=== PATIENT | male | born 1980 | race Caucasian/White ===

== ENCOUNTER 2016-12-13 11:00 | Emergency (ER) | payer OTHER ==
[~2016-12-13] VITALS: Ht 175.3 cm; Wt 63.6 kg
[~2016-12-13 11:00] MED LIST: FAMO40TA52 PO; MAG355OR14 PO; PHEN200C PO; QUET200T PO; RISP3TAB25 PO
[2016-12-13 11:03] VITALS: Ht 175.3 cm; Wt 63.6 kg
[2016-12-13] MEDS ORDERED: SOD CHLORIDE 0.9% 1,000 ML IV STA (11:26)
[2016-12-13] MEDS ORDERED: ONDANSETRON 4 MG INJ IV STA (11:26)
--- NOTE | 2016-12-13 11:28 | ERD ---
ER Documentation Chief Complaint Date/Time DATE: 12/13/16 TIME: : Chief Complaint BROUGHT IN VIA EMS DUE TO HALLUCINATION AND STATED APPENDICITIS HPI 36-year-old undomiciled male, history of bipolar disease, schizophrenia chronic alcohol and polysubstance abuse brought to the ED by rescue ambulance for evaluation. The patient states he has not had his medications and over 10 days and is hallucinating. Denies suicidal or homicidal ideations. These are the same symptoms he always gets when he does not take his medications. Denies chest pain or palpitations. No headache or neck pain. Not tremulous. Mild, generalized, nonradiating abdominal pain. Patient states he was diagnosed with appendicitis at another hospital. No nausea, vomiting, diarrhea or constipation. No URI symptoms, cough or shortness of breath. No dysuria, polyuria or flank pain. No fevers or chills. ROS All systems reviewed and are negative except as per history of present illness. Medications Home Meds Reported Medications Quetiapine Fumarate* (Quetiapine Fumarate*) 200 Mg Tablet, 200 MG PO HS, TAB PER PT HASN'T HAD RX IN 10 DAYS 12/13/16 Risperidone* (Risperdal*) 3 Mg Tablet, 3 MG PO DAILY, TAB 09/26/16 Phenytoin* Sodium Extended (Dilantin*) 200 Mg Capsule, 200 MG PO HS, CAP PER PT HASN'T HAD RX'S FOR 10 DAYS 09/26/16 Discontinued Reported Medications Quetiapine Fumarate* (Seroquel*) 200 Mg Tablet, 200 MG PO HS, #30 TAB 09/26/16 Discontinued Scripts Famotidine* (Famotidine*) 40 Mg Tablet, 40 MG PO DAILY, #30 TAB Prov:JEISON MONSALVE MD 09/26/16 Mag Hydrox/Al Hydrox/Simeth (Maalox Advanced Suspension) 355 Ml Oral.susp, 2 TSP PO TID for PAIN, #24 OZ Prov:JEISON MONSALVE MD 09/26/16 Allergies Allergies: Coded Allergies: No Known Allergy (Unverified , 12/13/16) PMhx/Soc Reviewed in chart. As per HPI. History of Surgery: No Anesthesia Reaction: No Hx Neurological Disorder: Yes (seizure) Hx Respiratory Disorders: No Hx Cardiac Disorders: No Hx Psychiatric Problems: Yes (bipolar, schizophrenia, ETOH abuse) Hx Miscellaneous Medical Probl: Yes (homeless) Hx Alcohol Use: Yes (4 pints of vodka last used today) Hx Substance Use: No Hx Tobacco Use: Yes FmHx No cancer or stroke Physical Exam Vitals Vital Signs Date Time Temp Pulse Resp B/P Pulse Ox O2 Delivery O2 Flow Rate FiO2 12/13/16 13:35 98.2 83 18 112/59 96 Room Air 12/13/16 11:03 98.8 100 18 138/92 98 Physical Exam Const: [] Head: Atraumatic Eyes: Normal Conjunctiva ENT: Normal External Ears, Nose and Mouth. Neck: Full range of motion..~ No meningismus. Resp: Clear to auscultation bilaterally Cardio: Regular rate and rhythm, no murmurs Abd: Soft, non tender, non distended. Normal bowel sounds Skin: No petechiae or rashes Back: No midline or flank tenderness Ext: No cyanosis, or edema Neur: Awake and alert Psych: Normal Mood and Affect Result Diagram: 12/13/16 1145 12/13/16 1145 Results 24 hrs Laboratory Tests Test 12/13/16 11:45 Alanine Aminotransferase (ALT/SGPT) 52IU/L Albumin 4.3g/dl Albumin/Globulin Ratio 1.34 Alkaline Phosphatase 85IU/L Anion Gap 19 Anisocytosis 2+ Aspartate Amino Transf (AST/SGOT) 113IU/L Band Neutrophils % 1.0% Basophils # 0.110^3/ul Basophils % 3.0% Blood Morphology Comment Blood Urea Nitrogen 7mg/dl Calcium Level 9.0mg/dl Carbon Dioxide Level 27mmol/L Chloride Level 107mmol/L Creatinine 0.54mg/dl Direct Bilirubin 0.00mg/dl Eosinophils # 0.210^3/ul Eosinophils % 5.0% Ethyl Alcohol Level mg/dl Globulin 3.20g/dl Glucose Level 91mg/dl Hematocrit 27.0% Hemoglobin 9.0g/dl Hypochromasia 2+ Indirect Bilirubin 0.3mg/dl Lipase 166U/L Lymphocytes # 1.110^3/ul Lymphocytes % 32.0% Mean Corpuscular Hemoglobin 25.0pg Mean Corpuscular Hemoglobin Concent 33.3g/dl Mean Corpuscular Volume 75.0fl Mean Platelet Volume 7.1fl Microcytosis 2+ Monocytes # 0.410^3/ul Monocytes % 12.0% Neutrophils # 1.610^3/ul Neutrophils % 47.0% Nucleated Red Blood Cells # 10^3/ul Nucleated Red Blood Cells % /100WBC Ovalocytes FEW Platelet Count 58510^3/UL Polychromasia 1+ Potassium Level 4.2mmol/L Red Blood Count 3.5910^6/ul Red Cell Distribution Width 19.7% Sodium Level 149mmol/L Total Bilirubin 0.3mg/dl Total Protein 7.5g/dl Urine Amphetamines Screen NEGATIVE Urine Barbiturates NEGATIVE Urine Benzodiazepines Screen NEGATIVE Urine Bilirubin NEGATIVE Urine Cannabinoids NEGATIVE Urine Clarity CLEAR Urine Cocaine Screen NEGATIVE Urine Color LT. YELLOW Urine Glucose NEGATIVE% Urine Hemoglobin NEGATIVE Urine Ketones NEGATIVE Urine Leukocyte Esterase NEGATIVE Urine Nitrite NEGATIVE Urine Opiates Screen NEGATIVE Urine Specific [place] <=1.005 Urine Total Protein NEGATIVE Urine Urobilinogen 0.2 E.U./dL Urine pH 5.0 White Blood Count 3.410^3/ul Current Medications Medications (Trade) Dose Ordered Sig/Andrzej Route PRN Reason Start Time Stop Time Status Last Admin Dose Admin Sodium Chloride (NS) 1,000 ml @ 1,000 mls/hr Q1H STAT IV 12/13/16 11:26 12/13/16 12:25 DC 12/13/16 11:49 Ondansetron HCl (Zofran Inj) 4 mg ONCE STAT IV 12/13/16 11:26 12/13/16 11:28 DC 12/13/16 11:49 Pantoprazole (Protonix Iv) 40 mg ONCE ONCE IV 12/13/16 11:30 12/13/16 11:31 DC 12/13/16 11:49 IV Flush 10 ml 10 ml STK-MED ONCE .ROUTE 12/13/16 11:46 12/13/16 11:47 DC 12/13/16 11:46 Sodium Chloride (NS) 100 ml @ ud STK-MED ONCE .ROUTE 12/13/16 11:46 12/13/16 11:47 DC 12/13/16 11:46 Iohexol (Omnipaque 300mg/ ml) 150 ml STK-MED ONCE .ROUTE 12/13/16 11:46 12/13/16 11:47 DC 12/13/16 11:46 PROCEDURE: CT Abdomen and Pelvis with Contrast CLINICAL INDICATION: Abdominal pain, left lower quadrant pain, EtOH TECHNIQUE: Transaxial images were obtained through the abdomen and pelvis on a multi-slice scanner following the intravenous administration of iodinated contrast. No oral contrast had previously been given. Sagittal and coronal re- formations were subsequently reconstructed. One or more of the following dose reduction techniques were used: - Automated exposure control. - Adjustment of the mA and/or kV according to patient size. - Use of iterative reconstruction technique. Radiation dose: CTDIvol = 7.25 mGy; DLP = 431.63 mGy-cm. COMPARISON: No prior studies are available for comparison. FINDINGS: Lung bases: Minimal discoid atelectasis is seen in the right posterior sulcus. Liver: The liver is borderline enlarged and diffusely fatty infiltrated with no focal lesion. The hepatic and portal veins are patent. Gallbladder: The gallbladder is somewhat contracted and no stone is identified. The bladder wall appears thickened. Bile ducts: The intra and extrahepatic bile ducts are normal in caliber. Pancreas: Appears normal with no mass or inflammation evident. Spleen: Normal in size with no focal lesion. Adrenals: Normal with no mass identified. Kidneys, ureters and bladder: A 3 mm hypodensity suspicious for a cyst is seen in the superior pole right kidney. The kidneys are otherwise unremarkable without hydronephrosis. The ureters appear unremarkable. The bladder is quite distended with urine but appears normal. Reproductive organs: The prostate is not enlarged. Stomach, bowel, and mesentery: Substantial stool seen within the colon. The small bowel gas pattern reflects an ileus. The stomach is unremarkable. Appendix: A normal retrocecal vermiform appendix is evident. Peritoneum: No free intraperitoneal fluid or air is identified. Aorta: Normal in caliber with no aneurysmal dilatation. IVC: Unremarkable. Lymph nodes: No pathologically enlarged nodes are identified. Osseous structures: Non-acute appearing fractures are seen new involve the left L2 and L3 transverse processes. IMPRESSION: 1. The liver is borderline enlarged and diffusely fatty infiltrated with no focal lesion. 2. No gallstones are identified. The gallbladder is contracted with the wall appearing somewhat thickened. No bile duct dilatation or pancreatic pathology is evident. 3. A 3 mm hypodensity suspicious for a cyst is seen at the superior pole right kidney. The kidneys, ureters and bladder are otherwise unremarkable. 4. Substantial stool is seen within the colon and the small bowel gas pattern reflects an ileus. There is no evidence of bowel obstruction or inflammation and a normal-appearing retrocecal vermiform appendix is evident. 5. There is no free intraperitoneal fluid or air. 6. Non acute fractures involving the left L2 and L3 transverse processes. 7. Minimal discoid atelectasis seen in the right posterior sulcus. Physician Farhan Date Time Electronically viewed and signed by Physician Farhan on 12/13/2016 13:44 RH/ Procedures/MDM DOCUMENTS REVIEWED: ED nurse, prior ED, prior records. REEXAMINATION/REEVALUATION: Time: 14:35. Doing well. Abdomen soft nontender. MEDICAL DECISION MAKIN-year-old undomiciled male, history of bipolar disease, schizophrenia chronic alcohol and polysubstance abuse brought to the ED by rescue ambulance for evaluation of hallucinations. Patient says he has not had his medications in over 10 days. Denies suicidality or homicidality. Complained of abdominal pain and stated he was diagnosed with appendicitis at another hospital but CT is negative. No signs of delirium tremens. Patient given 10 day supply of his medications including Dilantin, Seroquel and risperidone pending follow-up. clinical services specialist consult pending for placement. Patient is able to navigate the community and is stable for discharge with precautionary instructions and outpatient follow-up as counseled per Counseled patient regarding diagnostic workup, diagnosis and need for followup. Understands to return to ED if symptoms recur, worsen or any other concerns. Departure Diagnosis: Primary Impression: Hallucinations Additional Impressions: Bipolar disease, chronic Schizophrenia Schizophrenia type: unspecified Qualified Code: F20.9 - Schizophrenia, unspecified type Homelessness Noncompliance with medication regimen Condition: Stable Patient Instructions: Psychosis, Schizophrenia, General, Treating Schizophrenia , Understanding Bipolar Disorder CLIFTON YARBROUGH MD Dec 13, 2016 11:28
[2016-12-13] MEDS ORDERED: PANTOPRAZOLE 40 MG INJ IV ONE (11:30)
[2016-12-13] MEDS ORDERED: IOHEXOL 300MG/ML 150 ML BTL ONE (11:46)
[2016-12-13] MEDS ORDERED: SOD CHLORIDE 0.9% 100 ML ONE (11:46)
[2016-12-13 12:11] LABS: ADD UMIC NO; URINE BILIRUBIN (Dip) NEGATIVE (NEGATIVE); URINE BLOOD (Dip) NEGATIVE (NEGATIVE); URINE COLOR LT. YELLOW (YELLOW); URINE GLUCOSE (Dip) NEGATIVE (NEGATIVE); URINE KETONES (Dip) NEGATIVE (NEGATIVE); URINE LEUKOCYTE ESTERASE (Dip) NEGATIVE (NEGATIVE); URINE NITRITE (Dip) NEGATIVE (NEGATIVE); URINE TOTAL PROTEIN (Dip) NEGATIVE (NEGATIVE); URINE UROBILINOGEN (Dip) 0.2 E.U./dL (0.1-1.0)
[2016-12-13 12:13] LABS: ALBUMIN 4.3 g/dl (3.3-4.9)
[2016-12-13 12:14] LABS: POTASSIUM 4.2 mmol/L (3.5-5.1)
[2016-12-13 12:16] LABS: ALBUMIN/GLOBULIN RATIO 1.34; BILIRUBIN,INDIRECT 0.3 mg/dl (0-1.1); BILIRUBIN,TOTAL 0.3 mg/dl (0.2-1.3); CREATININE 0.54 mg/dl (0.61-1.24); MEAN CORPUSCULAR HGB CONC 33.3 g/dl (32.0-37.0); MEAN PLATELET VOLUME 7.1 fl (7.4-10.4); PLATELET COUNT 147 10^3/UL (140-440); RED BLOOD COUNT 3.59 10^6/ul (4.70-6.10); RED CELL DISTRIBUTION WIDTH 19.7 % (11.5-14.5); TOTAL PROTEIN 7.5 g/dl (6.1-8.1); UNCORRECTED WBC 3.4 10^3/ul (4.8-10.8); WHITE BLOOD COUNT 3.4 10^3/ul (4.8-10.8)
[2016-12-13] MEDS ORDERED: QUET200T27 PO (12:17)
[2016-12-13 12:19] LABS: CONDITION 1; LH ANALYZER COMMENTS 1; SUSPECT 1
[2016-12-13 12:31] LABS: BASOPHIL # 0.1 10^3/ul (0.0-0.1); EOSINOPHILS # 0.2 10^3/ul (0.0-0.5); LYMPHOCYTES # 1.1 10^3/ul (0.8-2.9); MONOCYTE # 0.4 10^3/ul (0.3-0.9); NEUTROPHIL # 1.6 10^3/ul (1.6-7.5)
[2016-12-13 12:32] LABS: ANISOCYTOSIS 2+; HYPOCHROMASIA 2+; MICROCYTOSIS 2+; OVALOCYTES FEW; POIKILOCYTOSIS 1+
[2016-12-13 12:33] LABS: POLYCHROMASIA 1+
[2016-12-13 12:53] LABS: BARBITURATES NEGATIVE (NEGATIVE); BENZODIAZEPINES NEGATIVE (NEGATIVE); CANNABINOIDS NEGATIVE (NEGATIVE); COCAINE NEGATIVE (NEGATIVE); OPIATES NEGATIVE (NEGATIVE)
[2016-12-13 13:35] VITALS: BP 112/59; PULSE 83; RESP 18; TEMP 98.2
--- NOTE | 2016-12-13 13:44 | RADRPT ---
PROCEDURE: CT Abdomen and Pelvis with Contrast CLINICAL INDICATION: Abdominal pain, left lower quadrant pain, EtOH TECHNIQUE: Transaxial images were obtained through the abdomen and pelvis on a multi-slice scanner following the intravenous administration of iodinated contrast. No oral contrast had previously be en given. Sagittal and coronal re-formations were subsequently reconstructed. One or more of the following dose reduction techniques were used: - Automated exposure control. - Adjustment of the mA and/or kV according to patient size. - Use of iterative reconstruction technique. Radiation dose: CTDIvol = 7.25 mGy; DLP = 431.63 mGy-cm. COMPARISON: No prior studies are available for comparison. FINDINGS: Lung bases: Minimal discoid atelectasis is seen in the right posterior sulcus. Liver: The liver is borderline enlarged and diffusely fatty infiltrated with no focal lesion. The h epatic and portal veins are patent. Gallbladder: The gallbladder is somewhat contracted and no stone is identified. The bladder wall ap pears thickened. Bile ducts: The intra and extrahepatic bile ducts are normal in caliber. Pancreas: Appears normal with no mass or inflammation evident. Spleen: Normal in size with no focal lesion. Adrenals: Normal with no mass identified. Kidneys, ureters and bladder: A 3 mm hypodensity suspicious for a cyst is seen in the superior pole right kidney. The kidneys are otherwise unremarkable without hydronephrosis. The ureters appear un remarkable. The bladder is quite distended with urine but appears normal. Reproductive organs: The prostate is not enlarged. Stomach, bowel, and mesentery: Substantial stool seen within the colon. The small bowel gas pattern reflects an ileus. The stomach is unremarkable. Appendix: A normal retrocecal vermiform appendix is evident. Peritoneum: No free intraperitoneal fluid or air is identified. Aorta: Normal in caliber with no aneurysmal dilatation. IVC: Unremarkable. Lymph nodes: No pathologically enlarged nodes are identified. Osseous structures: Non-acute appearing fractures are seen new involve the left L2 and L3 transverse processes. IMPRESSION: 1. The liver is borderline enlarged and diffusely fatty infiltrated with no focal lesion. 2. No gallstones are identified. The gallbladder is contracted with the wall appearing somewhat th ickened. No bile duct dilatation or pancreatic pathology is evident. 3. A 3 mm hypodensity suspicious for a cyst is seen at the superior pole right kidney. The kidneys , ureters and bladder are otherwise unremarkable. 4. Substantial stool is seen within the colon and the small bowel gas pattern reflects an ileus. T here is no evidence of bowel obstruction or inflammation and a normal-appearing retrocecal vermiform appendix is evident. 5. There is no free intraperitoneal fluid or air. 6. Non acute fractures involving the left L2 and L3 transverse processes. 7. Minimal discoid atelectasis seen in the right posterior sulcus. Lauren Silva Physician Date Time Electronically viewed and signed by Lauren Silva Physician on 12/13/2016 13:44 RH/
[2016-12-13] MEDS ORDERED: QUET200T PO (14:47)
[2016-12-13] MEDS ORDERED: RISP3TAB25 PO (14:47)
[2016-12-13] MEDS ORDERED: PHEN300C2 PO (14:47)
[2016-12-14] MEDS ORDERED: ONDA4TAB14 PO (03:27)
[2016-12-14] MEDS ORDERED: DIPH1TAB PO (03:27)
[2016-12-14] MEDS ORDERED: HYDR-906 PO (03:27)
[2016-12-14] MEDS ORDERED: ELIM TOP (20:00)
== END 2016-12-13 15:10 | disposition home or self-care (01) ==
LOC: E/R 11:00
DX: R44.3 Hallucinations, unspecified (principal); F31.9 Bipolar disorder, unspecified; Z87.891 Personal history of nicotine dependence; Z91.14 Patient's other noncompliance with medication regimen; Z59.0 Homelessness
CPT/HCPCS: 36415; 74177; 80053; 80306; 80307; 81003; 83690; 85025; 96374; 96375; C9113; J2405; J7030; Q9967; Z7502; Z7610

== ENCOUNTER 2016-12-13 20:02 | Emergency (ER) | payer OTHER ==
[~2016-12-13] VITALS: Ht 175.3 cm; Wt 63.6 kg
[~2016-12-13 20:02] MED LIST changes: +PHEN300C2 PO; +QUET200T27 PO
[2016-12-13 20:05] VITALS: Ht 175.3 cm; Wt 63.6 kg
[2016-12-14] MEDS ORDERED: FAMOTIDINE 20 MG INJ IV STA (00:57)
[2016-12-14] MEDS ORDERED: ONDANSETRON 4 MG INJ IV STA (00:57)
[2016-12-14] MEDS ORDERED: SOD CHLORIDE 0.9% 1,000 ML IV STA (00:57)
[2016-12-14] MEDS ORDERED: morphine 4 MG/ML VIAL IV STA (00:57)
[2016-12-14] MEDS ORDERED: IOHEXOL 300MG/ML 150 ML BTL ONE (01:17)
[2016-12-14] MEDS ORDERED: SOD CHLORIDE 0.9% 100 ML ONE (01:17)
[2016-12-14 01:29] LABS: HEMATOCRIT 29.5 % (42.0-52.0); HEMOGLOBIN 9.7 g/dl (14.0-18.0); MEAN CORPUSCULAR HEMOGLOBIN 24.8 pg (29.0-33.0); MEAN CORPUSCULAR HGB CONC 32.9 g/dl (32.0-37.0); MEAN CORPUSCULAR VOLUME 75.3 fl (82.0-101.0); MEAN PLATELET VOLUME 7.1 fl (7.4-10.4); PLATELET COUNT 154 10^3/UL (140-440); RED BLOOD COUNT 3.92 10^6/ul (4.70-6.10); RED CELL DISTRIBUTION WIDTH 19.1 % (11.5-14.5); UNCORRECTED WBC 2.3 10^3/ul (4.8-10.8); WHITE BLOOD COUNT 2.3 10^3/ul (4.8-10.8)
[2016-12-14 01:33] LABS: CONDITION 1; LH ANALYZER COMMENTS 1; SUSPECT 1
[2016-12-14 01:39] LABS: ALBUMIN 4.7 g/dl (3.3-4.9)
[2016-12-14 01:40] LABS: POTASSIUM 3.9 mmol/L (3.5-5.1)
[2016-12-14 01:42] LABS: BILIRUBIN,INDIRECT 0.1 mg/dl (0-1.1); BILIRUBIN,TOTAL 0.1 mg/dl (0.2-1.3); CREATININE 0.61 mg/dl (0.61-1.24)
[2016-12-14 01:43] LABS: ALBUMIN/GLOBULIN RATIO 1.42
[2016-12-14 02:05] LABS: EOSINOPHILS # 0.2 10^3/ul (0.0-0.5); LYMPHOCYTES # 1.1 10^3/ul (0.8-2.9); MONOCYTE # 0.2 10^3/ul (0.3-0.9); NEUTROPHIL # 0.7 10^3/ul (1.6-7.5)
[2016-12-14 02:07] LABS: PLATELET ESTIMATE PLT APPEAR ADEQUATE
--- NOTE | 2016-12-14 02:53 | ERA ---
ER Documentation Chief Complaint Date/Time DATE: 12/14/16 TIME: 02:49 Chief Complaint BIBA x belly pain,drunk,&vomiting on/off HPI This 36-year-old male complaining of diffuse abdominal pain with off and on vomiting. He is also says he has had off-and-on diarrhea for the past 2 days both nonbloody no bile in the vomit. Patient says he drank vodka and 3x24 ounce beers. No chest pain shortness of breath no fever no history of dyspepsia or peptic ulcer disease. Describes the pain is diffuse and dull and constant nothing seems to make it worse or better no radiation no dysuria no hematuria ROS All systems reviewed and are negative except as per history of present illness. Medications Home Meds Active Scripts Risperidone* (Risperdal*) 3 Mg Tablet, 3 MG PO DAILY for 10 Days, TAB Prov:CLIFTON YARBROUGH MD 12/13/16 Phenytoin* Sodium Extended (Dilantin*) 300 Mg Capsule, 300 MG PO HS for 10 Days , CAP Prov:CLIFTON YARBROUGH MD 12/13/16 Quetiapine Fumarate* (Seroquel*) 200 Mg Tablet, 200 MG PO HS, #10 TAB Prov:CLIFTON YARBROUGH MD 12/13/16 Reported Medications Quetiapine Fumarate* (Quetiapine Fumarate*) 200 Mg Tablet, 200 MG PO HS, TAB PER PT HASN'T HAD RX IN 10 DAYS 12/13/16 Risperidone* (Risperdal*) 3 Mg Tablet, 3 MG PO DAILY, TAB 09/26/16 Phenytoin* Sodium Extended (Dilantin*) 200 Mg Capsule, 200 MG PO HS, CAP PER PT HASN'T HAD RX'S FOR 10 DAYS 09/26/16 Discontinued Reported Medications Quetiapine Fumarate* (Seroquel*) 200 Mg Tablet, 200 MG PO HS, #30 TAB 09/26/16 Discontinued Scripts Famotidine* (Famotidine*) 40 Mg Tablet, 40 MG PO DAILY, #30 TAB Prov:JEISON MONSALVE MD 09/26/16 Mag Hydrox/Al Hydrox/Simeth (Maalox Advanced Suspension) 355 Ml Oral.susp, 2 TSP PO TID for PAIN, #24 OZ Prov:JEISON MONSALVE MD 09/26/16 Allergies Allergies: Coded Allergies: No Known Allergy (Unverified , 12/13/16) PMhx/Soc History of Surgery: No Anesthesia Reaction: No Hx Neurological Disorder: Yes (seizure) Hx Respiratory Disorders: No Hx Cardiac Disorders: No Hx Psychiatric Problems: Yes (bipolar, schizophrenia, ETOH abuse) Hx Miscellaneous Medical Probl: Yes (homeless) Hx Alcohol Use: Yes (4 pints of vodka & 3-24 oz beer last used today) Hx Substance Use: No Hx Tobacco Use: Yes Smoking Status: Current every day smoker FmHx Family History: No coronary disease Physical Exam Vitals Vital Signs Date Time Temp Pulse Resp B/P Pulse Ox O2 Delivery O2 Flow Rate FiO2 12/14/16 01:00 88 18 121/59 99 Room Air 12/13/16 20:05 98.8 98 20 142/69 99 Physical Exam Const: Well-developed, well-nourished Head: Atraumatic, normocephalic Eyes: Normal Conjunctiva, PERRLA, EOMI, normal sclera, no nystagmus ENT: Normal External Ears, Nose and Mouth, moist mucus membranes. Neck: Full range of motion. No meningismus, no lymphadenopathy. Resp: Clear to auscultation bilaterally, no wheezing, rhonchi, rales Cardio: Regular rate and rhythm, no murmurs, S1 S2 present Abd: Soft, diffuse mild to moderate tenderness, pain seems out of proportion to exam, non distended. Normal bowel sounds, no guarding or rebound, no pulsitile abdominal masses or bruits Skin: No petechiae or rashes, no ecchymosis , no maculopapular rash Back: No midline or flank tenderness Ext: No cyanosis, or edema, FROM x 4, normal inspection, neurovascularly intact x 4 Neur: Awake and alert, STR 5/5 x 4, sensation intact x 4, no focal findings, cerebellum intact Psych: Normal Mood and Affect does not appear grossly intoxicated Result Diagram: 12/14/1611012/14/16110 Results 24 hrs Laboratory Tests Test 12/14/16 01:11 Alanine Aminotransferase (ALT/SGPT) 58IU/L Albumin 4.7g/dl Albumin/Globulin Ratio 1.42 Alkaline Phosphatase 84IU/L Anion Gap 20 Aspartate Amino Transf (AST/SGOT) 111IU/L Basophils # 0.010^3/ul Basophils % 2.0% Blood Morphology Comment Blood Urea Nitrogen 6mg/dl Calcium Level 9.0mg/dl Carbon Dioxide Level 28mmol/L Chloride Level 106mmol/L Creatinine 0.61mg/dl Direct Bilirubin 0.00mg/dl Eosinophils # 0.210^3/ul Eosinophils % 10.0% Globulin 3.30g/dl Glucose Level 90mg/dl Hematocrit 29.5% Hemoglobin 9.7g/dl Indirect Bilirubin 0.1mg/dl Lipase 197U/L Lymphocytes # 1.110^3/ul Lymphocytes % 46.0% Mean Corpuscular Hemoglobin 24.8pg Mean Corpuscular Hemoglobin Concent 32.9g/dl Mean Corpuscular Volume 75.3fl Mean Platelet Volume 7.1fl Monocytes # 0.210^3/ul Monocytes % 10.0% Neutrophils # 0.710^3/ul Neutrophils % 32.0% Nucleated Red Blood Cells # 10^3/ul Platelet Count 16427^3/UL Platelet Estimate PLT APPEAR ADEQUATE Potassium Level 3.9mmol/L Red Blood Count 3.9210^6/ul Red Cell Distribution Width 19.1% Sodium Level 150mmol/L Total Bilirubin 0.1mg/dl Total Protein 8.0g/dl White Blood Count 2.310^3/ul Current Medications Medications (Trade) Dose Ordered Sig/Andrzej Route PRN Reason Start Time Stop Time Status Last Admin Dose Admin Sodium Chloride (NS) 1,000 ml @ 1,000 mls/hr Q1H STAT IV 12/14/16 00:57 12/14/16 01:56 DC 12/14/16 01:22 Morphine Sulfate (morphine) 4 mg ONCE STAT IV 12/14/16 00:57 12/14/16 00:59 DC 12/14/16 01:23 Ondansetron HCl (Zofran Inj) 4 mg ONCE STAT IV 12/14/16 00:57 12/14/16 00:59 DC 12/14/16 01:22 Famotidine (Pepcid Iv) 20 mg ONCE STAT IV 12/14/16 00:57 12/14/16 00:59 DC 12/14/16 01:22 IV Flush 10 ml 10 ml STK-MED ONCE .ROUTE 1/29/17 01:17 12/14/16 01:18 DC 12/14/16 01:22 Sodium Chloride (NS) 100 ml @ ud STK-MED ONCE .ROUTE 12/14/16 01:17 12/14/16 01:18 DC 12/14/16 01:22 Iohexol (Omnipaque 300mg/ ml) 150 ml STK-MED ONCE .ROUTE 12/14/16 01:17 12/14/16 01:18 DC 12/14/16 01:22 Procedures/MDM PROCEDURE: CT ABDOMEN/PELVIS WITH CONTRAST CLINICAL INDICATION: 36-year-old male with abdominal pain. TECHNIQUE: The study was performed utilizing a [employer] VCT 64-slice CT scanner. Direct axial sections were obtained through the abdomen and pelvis with the use of 95 cc of Omnipaque-300 nonionic intravenous contrast material. Sagittal and coronal reformations were obtained. Automated exposure control and iterative reconstruction techniques were utilized for this examination. The images were reviewed on a PACS workstation. CTD/vol = 6.1 mGy; Total Exam DLP = 373.4 mGy-cm. COMPARISON: CT abdomen/pelvis December 13, 2016. FINDINGS: There is trace bibasilar subsegmental atelectasis. There is no evidence for significant pleural effusion. The liver has a normal size and contour. There is diffuse decreased density throughout the liver consistent with fatty infiltration without focal areas of abnormal density or contrast enhancement. No intrahepatic nor extrahepatic biliary ductal dilatation is seen. The gallbladder demonstrates no wall thickening nor pericholecystic fluid. No biliary stones are evident. The pancreas is without areas of abnormal attenuation or contrast enhancement. This spleen is identified and has a normal size without abnormal density or contrast enhancement. The adrenal glands are unremarkable. The kidneys are functional bilaterally. There is a small hypodense focus within the upper pole of the right kidney measuring approximately 4 x 4 x 4 mm without significant interval change. No hydroureteronephrosis nor nephroureterolithiasis is evident. The urinary bladder contains urine. There is mild thickening and fluid identified within the small bowel without transition point to suggest an obstruction. This may represent an enteritis. Mild retained stool is seen within the colon without obstruction. The appendix is retrocecal and is without edema or surrounding inflammatory reaction. There is no significant free fluid. The aortoiliac vessels are without aneurysmal dilatation. There are healing fractures identified involving the left L2 and L3 transverse processes with callus formation. IMPRESSION: 1. There has been no marked interval change compared to the patient's prior CT scan from December 13, 2016. 2. Trace bibasilar subsegmental atelectasis. 3. Diffuse fatty infiltration of the liver. 4. Small focal ovoid 4 mm hypodense focus within the upper pole of the right kidney as previously identified and presumably representing a cyst. 5. Mild thickening and fluid throughout the small bowel without obstruction. This may represent an enteritis. Clinical correlation is necessary. 6. Mild retained stool without obstruction. 7. No CT evidence for appendicitis. 8. Healing left L2 and L3 transverse process fractures. .Ethan Salinas MD, MD Date Time Electronically viewed and signed by .Ethan Salinas MD, on 12/14/2016 03:01 .M/ CC: SUBHASH GONZALEZ DO Patient was given IV fluids and pain medications. He likely has enteritis as is such found on his CAT scan. Provide him with some symptomatic relief. No acute process on CT Departure Diagnosis: Primary Impression: Enteritis Condition: Stable SUBHASH GONZALEZ DO Dec 14, 2016 02:53
--- NOTE | 2016-12-14 03:02 | RADRPT ---
PROCEDURE: CT ABDOMEN/PELVIS WITH CONTRAST CLINICAL INDICATION: 36-year-old male with abdominal pain. TECHNIQUE: The study was performed utilizing a [employer] VCT 64-slice CT scanner. Direct axia l sections were obtained through the abdomen and pelvis with the use of 95 cc of Omnipaque-300 nonio oumou intravenous contrast material. Sagittal and coronal reformations were obtained. Automated exposu re control and iterative reconstruction techniques were utilized for this examination. The images w ere reviewed on a PACS workstation. CTD/vol = 6.1 mGy; Total Exam DLP = 373.4 mGy-cm. COMPARISON: CT abdomen/pelvis December 13, 2016. FINDINGS: There is trace bibasilar subsegmental atelectasis. There is no evidence for significant pleural eff usion. The liver has a normal size and contour. There is diffuse decreased density throughout the liver consistent with fatty infiltration without focal areas of abnormal density or contrast enhance ment. No intrahepatic nor extrahepatic biliary ductal dilatation is seen. The gallbladder demonstrat es no wall thickening nor pericholecystic fluid. No biliary stones are evident. The pancreas is with out areas of abnormal attenuation or contrast enhancement. This spleen is identified and has a norm al size without abnormal density or contrast enhancement. The adrenal glands are unremarkable. The k idneys are functional bilaterally. There is a small hypodense focus within the upper pole of the ri ght kidney measuring approximately 4 x 4 x 4 mm without significant interval change. No hydrouretero nephrosis nor nephroureterolithiasis is evident. The urinary bladder contains urine. There is mild thickening and fluid identified within the small bowel without transition point to suggest an obstru ction. This may represent an enteritis. Mild retained stool is seen within the colon without obstr uction. The appendix is retrocecal and is without edema or surrounding inflammatory reaction. There is no significant free fluid. The aortoiliac vessels are without aneurysmal dilatation. There are healing fractures identified involving the left L2 and L3 transverse processes with callus formation . IMPRESSION: 1. There has been no marked interval change compared to the patient's prior CT scan from November. 2. Trace bibasilar subsegmental atelectasis. 3. Diffuse fatty infiltration of the liver. 4. Small focal ovoid 4 mm hypodense focus within the upper pole of the right kidney as previously i dentified and presumably representing a cyst. 5. Mild thickening and fluid throughout the small bowel without obstruction. This may represent an enteritis. Clinical correlation is necessary. 6. Mild retained stool without obstruction. 7. No CT evidence for appendicitis. 8. Healing left L2 and L3 transverse process fractures. .Ethan Salinas MD, Date Time Electronically viewed and signed by .Ethan Salinas MD, on 12/14/2016 03:01 .Can
[2016-12-14] MEDS ORDERED: ONDA4TAB14 PO (03:27)
[2016-12-14] MEDS ORDERED: HYDR-906 PO (03:27)
[2016-12-14] MEDS ORDERED: DIPH1TAB PO (03:27)
[2016-12-14 05:12] VITALS: BP 119/61; PULSE 86; RESP 18; TEMP 98.6
[2016-12-14] MEDS ORDERED: ELIM TOP (20:00)
== END 2016-12-14 05:16 | disposition home or self-care (01) ==
LOC: E/R 20:02
DX: K52.9 Noninfective gastroenteritis and colitis, unspecified (principal); R40.2252 Coma scale, best verbal response, oriented, at arrival to emergency department; R11.10 Vomiting, unspecified; F17.210 Nicotine dependence, cigarettes, uncomplicated; R40.2362 Coma scale, best motor response, obeys commands, at arrival to emergency department; R40.2142 Coma scale, eyes open, spontaneous, at arrival to emergency department
CPT/HCPCS: 36415; 74177; 80053; 83690; 85025; 96374; 96375; J2270; J2405; J7030; Q9967; Z7502; Z7610

== ENCOUNTER 2016-12-14 12:32 | Emergency (ER) | payer OTHER ==
[~2016-12-14] VITALS: Ht 175.3 cm; Wt 75.0 kg
[~2016-12-14 12:32] MED LIST changes: +DIPH1TAB PO; +HYDR-906 PO; +ONDA4TAB14 PO
[2016-12-14 13:04] VITALS: BP 140/74; PULSE 89; RESP 18; Ht 175.3 cm; Wt 75.0 kg
--- NOTE | 2016-12-14 14:13 | ERD ---
ER Documentation Chief Complaint Date/Time DATE: 12/14/16 TIME: 14:13 Chief Complaint [address] HPI 36-year-old undomiciled male with a history of bipolar disease, schizophrenia, chronic abdominal pain, chronic alcohol and polysubstance abuse brought to the ED via ambulance for evaluation. Apparently the patient was screaming and yelling at a fast food restaurant and insisted on being transported to the hospital. He continues to complain of chronic, generalized, nonradiating abdominal pain with nausea denies vomiting, diarrhea or constipation. No hematemesis or hematochezia. He was seen in this ED twice for the last 24 hours for similar symptoms and had 2 CAT scans that were essentially unremarkable. Denies chest pain or palpitations. No shortness of breath or cough. No fevers or chills. Yesterday he complained of hallucinations and requested medication refills which were given. A high school social studies tutor consult was also obtained. Currently he denies hallucinations, suicidal homicidal ideations. ROS All systems reviewed and are negative except as per history of present illness. Medications Home Meds Active Scripts Hydrocodone/Acetaminophen ([place] 5-325 Tablet) 1 Each Tablet, 1 TAB PO Q6H Y for PAIN, #7 TAB Prov:SUBHASH GONZALEZ DO 12/14/16 Ondansetron (Ondansetron Odt) 4 Mg Tab.rapdis, 4 MG PO Q6H Y for NAUSEA AND/OR VOMITING, #10 TAB Prov:SUBHASH GONZALEZ DO 12/14/16 Diphenoxylate HCl/Atropine (Lomotil 2.5-0.025 mg Tablet) 1 Each Tablet, 1 TAB PO QID Y for DIARRHEA, #10 TAB Prov:SUBHASH GONZALEZ DO 12/14/16 Risperidone* (Risperdal*) 3 Mg Tablet, 3 MG PO DAILY for 10 Days, TAB Prov:CLIFTON YARBROUGH MD 12/13/16 Phenytoin* Sodium Extended (Dilantin*) 300 Mg Capsule, 300 MG PO HS for 10 Days , CAP Prov:CLIFTON YARBROUGH MD 12/13/16 Quetiapine Fumarate* (Seroquel*) 200 Mg Tablet, 200 MG PO HS, #10 TAB Prov:CLIFTON YARBROUGH MD 12/13/16 Reported Medications Quetiapine Fumarate* (Quetiapine Fumarate*) 200 Mg Tablet, 200 MG PO HS, TAB PER PT HASN'T HAD RX IN 10 DAYS 12/13/16 Risperidone* (Risperdal*) 3 Mg Tablet, 3 MG PO DAILY, TAB 09/26/16 Phenytoin* Sodium Extended (Dilantin*) 200 Mg Capsule, 200 MG PO HS, CAP PER PT HASN'T HAD RX'S FOR 10 DAYS 09/26/16 Discontinued Reported Medications Quetiapine Fumarate* (Seroquel*) 200 Mg Tablet, 200 MG PO HS, #30 TAB 09/26/16 Discontinued Scripts Famotidine* (Famotidine*) 40 Mg Tablet, 40 MG PO DAILY, #30 TAB Prov:JEISON MONSALVE MD 09/26/16 Mag Hydrox/Al Hydrox/Simeth (Maalox Advanced Suspension) 355 Ml Oral.susp, 2 TSP PO TID for PAIN, #24 OZ Prov:JEISON MONSALVE MD 09/26/16 Allergies Allergies: Coded Allergies: No Known Allergy (Unverified , 12/13/16) PMhx/Soc Reviewed in chart. As per HPI. History of Surgery: No Anesthesia Reaction: No Hx Neurological Disorder: Yes (seizure) Hx Respiratory Disorders: No Hx Cardiac Disorders: No Hx Psychiatric Problems: Yes (bipolar, schizophrenia, ETOH abuse) Hx Miscellaneous Medical Probl: Yes (homeless) Hx Alcohol Use: Yes (4 pints of vodka & 3-24 oz beer last used today) Hx Substance Use: No Hx Tobacco Use: Yes Smoking Status: Current every day smoker FmHx Not relevant to presenting complaint. Physical Exam Vitals Vital Signs Date Time Temp Pulse Resp B/P Pulse Ox O2 Delivery O2 Flow Rate FiO2 12/14/16 13:04 89 18 140/74 98 Room Air 12/14/16 13:04 98.8 89 18 136/80 99 Physical Exam Const: Sleepy but easily arousable, poor hygiene, no acute distress. Head: Atraumatic Eyes: Pupils equal reactive to light, extraocular movements are intact. Horizontal nystagmus. Conjunctiva injected. ENT: Normal External Ears, Nose and Mouth. Neck: Full range of motion. Nontender. No meningismus. Resp: Clear to auscultation bilaterally Cardio: Regular rate and rhythm, no murmurs Abd: Soft, non tender, non distended. Normal bowel sounds Skin: No petechiae or rashes Back: No midline or flank tenderness Ext: No cyanosis, or edema Neur: Awake and alert. No focal deficit Psych: Bizarre affect. On direct questioning denies hallucinations, suicidal or homicidal ideations. Procedures/MDM DOCUMENTS REVIEWED: ED nurse, prior ED, prior records, EMS records MEDICAL DECISION MAKIN-year-old undomiciled male with a history of bipolar disease, schizophrenia, chronic abdominal pain, chronic alcohol and polysubstance abuse brought to the ED via ambulance for evaluation. He has already had 2 visits in the last [address]s and labs been performed which were unremarkable. Abdominal exam is benign without signs of peritonitis. No hallucinations, suicidality, homicidality or indication for psychiatric evaluation. family services manager consult will be requested. Counseled patient regarding diagnostic workup, diagnosis and need for followup. Understands to return to ED if symptoms recur, worsen or any other concerns. Departure Diagnosis: Primary Impression: Chronic abdominal pain Additional Impressions: Bipolar disease, chronic Schizophrenia Schizophrenia type: unspecified Qualified Code: F20.9 - Schizophrenia, unspecified type Homelessness Condition: Stable Patient Instructions: Abdominal Pain, Unkown Cause, (Male), Bipolar Disorder CLIFTON YARBROUGH MD Dec 14, 2016 14:13
[2016-12-14] MEDS ORDERED: ELIM TOP (20:00)
== END 2016-12-14 16:03 | disposition home or self-care (01) ==
LOC: E/R 12:32
DX: R10.84 Generalized abdominal pain (principal); F20.9 Schizophrenia, unspecified; F31.9 Bipolar disorder, unspecified; R11.0 Nausea; F17.210 Nicotine dependence, cigarettes, uncomplicated; Z59.0 Homelessness
CPT/HCPCS: 99284

== ENCOUNTER 2016-12-14 18:15 | Emergency (ER) | payer OTHER ==
[~2016-12-14] VITALS: Ht 167.6 cm; Wt 64.0 kg
[~2016-12-14 18:15] MED LIST changes: -FAMO40TA52 PO; -MAG355OR14 PO
[2016-12-14 18:53] VITALS: Ht 167.6 cm; Wt 64.0 kg
[2016-12-14] MEDS ORDERED: ELIM TOP (20:00)
--- NOTE | 2016-12-14 20:06 | ERD ---
ER Documentation Chief Complaint Date/Time DATE: 12/14/16 TIME: 20:03 Chief Complaint Pt present to ED with AP X 4 days, pt also has lice and "scabies". HPI Paramedics brought this patient had been discharged early this morning in saline given him that he had complained of abdominal pain earlier. He is not telling me just has Lasix and did not get any medication for his lice earlier today. He says he is not have abdominal pain now in fact is hungry. States that he thinks his head lice for over a week now. ROS All systems reviewed and are negative except as per history of present illness. Medications Home Meds Active Scripts Permethrin* (Elimite*) 5% Cr, 1 APPLIC TOP ONCE, #1 TUB Prov:ALANNAHHELENA DO 12/14/16 Hydrocodone/Acetaminophen ([employer] 5-325 Tablet) 1 Each Tablet, 1 TAB PO Q6H Y for PAIN, #7 TAB Prov:SUBHASH GONZALEZ DO 12/14/16 Ondansetron (Ondansetron Odt) 4 Mg Tab.rapdis, 4 MG PO Q6H Y for NAUSEA AND/OR VOMITING, #10 TAB Prov:SUBHASH GONZALEZ DO 12/14/16 Diphenoxylate HCl/Atropine (Lomotil 2.5-0.025 mg Tablet) 1 Each Tablet, 1 TAB PO QID Y for DIARRHEA, #10 TAB Prov:EMELY GONZALEZSTCHARIS Arnold DO 12/14/16 Risperidone* (Risperdal*) 3 Mg Tablet, 3 MG PO DAILY for 10 Days, TAB Prov:CLIFTON YARBROUGH MD 12/13/16 Phenytoin* Sodium Extended (Dilantin*) 300 Mg Capsule, 300 MG PO HS for 10 Days , CAP Prov:CLIFTON YARBROUGH MD 12/13/16 Quetiapine Fumarate* (Seroquel*) 200 Mg Tablet, 200 MG PO HS, #10 TAB Prov:CLIFTON YARBROUGH MD 12/13/16 Reported Medications Quetiapine Fumarate* (Quetiapine Fumarate*) 200 Mg Tablet, 200 MG PO HS, TAB PER PT HASN'T HAD RX IN 10 DAYS 12/13/16 Risperidone* (Risperdal*) 3 Mg Tablet, 3 MG PO DAILY, TAB 09/26/16 Phenytoin* Sodium Extended (Dilantin*) 200 Mg Capsule, 200 MG PO HS, CAP PER PT HASN'T HAD RX'S FOR 10 DAYS 09/26/16 Discontinued Reported Medications Quetiapine Fumarate* (Seroquel*) 200 Mg Tablet, 200 MG PO HS, #30 TAB 09/26/16 Discontinued Scripts Famotidine* (Famotidine*) 40 Mg Tablet, 40 MG PO DAILY, #30 TAB Prov:JEISON MONSALVE MD 09/26/16 Mag Hydrox/Al Hydrox/Simeth (Maalox Advanced Suspension) 355 Ml Oral.susp, 2 TSP PO TID for PAIN, #24 OZ Prov:JEISON MONSALVE MD 09/26/16 Allergies Allergies: Coded Allergies: No Known Allergy (Unverified , 12/13/16) PMhx/Soc History of Surgery: No Anesthesia Reaction: No Hx Neurological Disorder: Yes (seizure) Hx Respiratory Disorders: No Hx Cardiac Disorders: No Hx Psychiatric Problems: Yes (bipolar, schizophrenia, ETOH abuse) Hx Miscellaneous Medical Probl: Yes (homeless) Hx Alcohol Use: Yes Hx Substance Use: No Hx Tobacco Use: Yes Smoking Status: Current every day smoker Physical Exam Vitals Vital Signs Date Time Temp Pulse Resp B/P Pulse Ox O2 Delivery O2 Flow Rate FiO2 12/14/16 18:53 98.3 92 14 115/68 97 Physical Exam Const: [] No distress Head: Atraumatic, hair with visible lice eggs. Eyes: Normal Conjunctiva ENT: Normal External Ears, Nose and Mouth. Neck: Full range of motion..~ No meningismus. Resp: Clear to auscultation bilaterally Cardio: Regular rate and rhythm, no murmurs Abd: Soft, non tender, non distended. Normal bowel sounds Skin: No petechiae or rashes, no sign of scabies currently Back: No midline or flank tenderness Ext: No cyanosis, or edema Neur: Awake and alert oriented 3, normal gait, no focal deficits Psych: Normal Mood and Affect Procedures/MDM Patient was requesting treatment for lice. Is also given a sandwich because he had abdominal pain earlier in the day. States he doesn't have abdominal pain was able to eat with no problems. Told that many given permethrin cream that he needs to wash off after 8 hours. He think this for treatment and I provided him with primary care for up with the next couple of days. Patient had local intoxication last night but states that he is not intoxicated now has no clinical signs of intoxication on this visit. Return precautions given Departure Diagnosis: Primary Impression: Lice infestation Condition: Stable Patient Instructions: Lice, Head Referrals: [facility] YOU HAVE RECEIVED A MEDICAL SCREENING EXAM AND THE RESULTS INDICATE THAT YOU DO NOT HAVE A CONDITION THAT REQUIRES URGENT TREATMENT IN THE EMERGENCY DEPARTMENT. FURTHER EVALUATION AND TREATMENT OF YOUR CONDITION CAN WAIT UNTIL YOU ARE SEEN IN YOUR DOCTORS OFFICE WITHIN THE NEXT 1-2 DAYS. IT IS YOUR RESPONSIBILITY TO MAKE AN APPOINTMENT FOR FOLOW-UP CARE. IF YOU HAVE A PRIMARY DOCTOR --you should call your primary doctor and schedule an appointment IF YOU DO NOT HAVE A PRIMARY DOCTOR YOU CAN CALL OUR PHYSICIAN REFERRAL HOTLINE AT IF YOU CAN NOT AFFORD TO SEE A PHYSICIAN YOU CAN CHOSE FROM THE FOLLOWING [facility] [address] [facility]. [facility] [address] [facility] [address] [facility] [address] [facility] [address] [facility] [address] [facility]. [facility]. [address] Additional Instructions: Call your primary care doctor TOMORROW for an appointment during the next 1-2 days.See the doctor sooner or return here if your condition worsens before your appointment time. HELENA JAFFE DO Dec 14, 2016 20:06
== END 2016-12-14 20:03 | disposition home or self-care (01) ==
LOC: E/R 18:15
DX: B85.2 Pediculosis, unspecified (principal); F17.210 Nicotine dependence, cigarettes, uncomplicated
CPT/HCPCS: 99284

== ENCOUNTER 2016-12-18 14:02 | Emergency (ER) | payer OTHER ==
[~2016-12-18] VITALS: Wt 64.0 kg
[~2016-12-18 14:02] MED LIST changes: +ELIM TOP
== END 2016-12-18 18:39 | disposition left against medical advice (07) ==
LOC: E/R 14:02
DX: Z53.21 Procedure and treatment not carried out due to patient leaving prior to being seen by health care provider (principal)

== ENCOUNTER 2017-07-17 01:37 | Emergency (ER) | payer MEDICAID, OTHER ==
[~2017-07-17] VITALS: Ht 182.9 cm; Wt 75.0 kg
[2017-07-17 01:40] VITALS: Ht 182.9 cm; Wt 75.0 kg
--- NOTE | 2017-07-17 03:19 | ERA ---
ER Documentation Chief Complaint Date/Time DATE: 07/17/17 TIME: 03:18 Chief Complaint etoh intoxication HPI . The patient is a 37-year-old male, presenting to the ER because he was found sleeping on the street in front of the ER. he is awake, alert, denies suicidal, homicidal ideation. He simply stated that he drank too much and want to sleep. He did not want to provide much history nor cooperative with the physical. He has multiple ER visit recently Past medical history: Chronic abdominal pain, alcoholism ROS All systems reviewed and are negative except as per history of present illness. Medications Home Meds Active Scripts Permethrin* (Elimite*) 5% Cr, 1 APPLIC TOP ONCE, #1 TUB Prov:ALANNAHHELENA DO 12/14/16 Hydrocodone/Acetaminophen ([place] 5-325 Tablet) 1 Each Tablet, 1 TAB PO Q6H Y for PAIN, #7 TAB Prov:SUBHASH GONZALEZ DO 12/14/16 Ondansetron (Ondansetron Odt) 4 Mg Tab.rapdis, 4 MG PO Q6H Y for NAUSEA AND/OR VOMITING, #10 TAB Prov:SUBHASH GONZALEZ. DO 12/14/16 Diphenoxylate HCl/Atropine (Lomotil 2.5-0.025 mg Tablet) 1 Each Tablet, 1 TAB PO QID Y for DIARRHEA, #10 TAB Prov:EMELY GONZALEZSTSHERRIS A. DO 12/14/16 Risperidone* (Risperdal*) 3 Mg Tablet, 3 MG PO DAILY for 10 Days, TAB Prov:CLIFTON YARBROUGH MD 12/13/16 Phenytoin* Sodium Extended (Dilantin*) 300 Mg Capsule, 300 MG PO HS for 10 Days , CAP Prov:CLIFTON YARBROUGH MD 12/13/16 Quetiapine Fumarate* (Seroquel*) 200 Mg Tablet, 200 MG PO HS, #10 TAB Prov:CLIFTON YABRROUGH MD 12/13/16 Reported Medications Quetiapine Fumarate* (Quetiapine Fumarate*) 200 Mg Tablet, 200 MG PO HS, TAB PER PT HASN'T HAD RX IN 10 DAYS 12/13/16 Risperidone* (Risperdal*) 3 Mg Tablet, 3 MG PO DAILY, TAB 09/26/16 Phenytoin* Sodium Extended (Dilantin*) 200 Mg Capsule, 200 MG PO HS, CAP PER PT HASN'T HAD RX'S FOR 10 DAYS 09/26/16 Allergies Allergies: Coded Allergies: No Known Allergy (Unverified , 12/13/16) PMhx/Soc History of Surgery: No Anesthesia Reaction: No Hx Neurological Disorder: Yes (seizure) Hx Respiratory Disorders: No Hx Cardiac Disorders: No Hx Psychiatric Problems: Yes (bipolar, schizophrenia, ETOH abuse) Hx Miscellaneous Medical Probl: Yes (homeless) Hx Alcohol Use: Yes Hx Substance Use: No Hx Tobacco Use: Yes Physical Exam Vitals Vital Signs Date Time Temp Pulse Resp B/P Pulse Ox O2 Delivery O2 Flow Rate FiO2 07/17/17 01:40 97.7 88 20 119/65 97 Physical Exam Const: No acute distress. Unkempt Head: Atraumatic. Eyes: Normal Conjunctiva. ENT: Normal External Ears, Nose and Mouth. Neck: Full range of motion. No meningismus. Resp: Clear to auscultation bilaterally. Cardio: Regular rate and rhythm. Abd: Soft, non distended, normal bowel sounds, non tender. Skin: No petechiae or rashes. Back: No midline or flank tenderness. Ext: No cyanosis, or edema. Neur: Awake and alert. No focal deficit Psych: Denies suicidal or homicidal ideation Procedures/MDM MEDICAL MAKING DECISION: The patient is a 37-year-old male, presenting to the ER because of ankle intoxication. We will be able to discharge when he darius in the morning. There is no evidence for alcohol withdrawal or impending DT Departure Diagnosis: Primary Impression: Alcoholic intoxication Condition: Good Comments He will be discharged in the morning MINA KHAN MD Jul 17, 2017 03:19
[2017-07-17] MEDS ORDERED: CHLO25CA9 PO (06:10)
[2017-07-17] MEDS ORDERED: LORA0.5T PO (06:10)
== END 2017-07-17 09:25 | disposition home or self-care (01) ==
LOC: E/R 01:37
DX: F10.120 Alcohol abuse with intoxication, uncomplicated (principal); Z87.891 Personal history of nicotine dependence
CPT/HCPCS: 99282

== ENCOUNTER 2017-08-01 22:46 | Emergency (ER) | payer SELFPAY ==
[~2017-08-01] VITALS: Ht 162.6 cm; Wt 80.0 kg
[~2017-08-01 22:46] MED LIST changes: +CHLO25CA9 PO; -DIPH1TAB PO; -ELIM TOP; -HYDR-906 PO; +LORA0.5T PO; -ONDA4TAB14 PO; -PHEN200C PO; -PHEN300C2 PO; -QUET200T PO; -QUET200T27 PO; -RISP3TAB25 PO
[2017-08-01 22:49] VITALS: Ht 162.6 cm; Wt 80.0 kg
== END 2017-08-01 23:13 | disposition left against medical advice (07) ==
LOC: E/R 22:46
DX: Z53.21 Procedure and treatment not carried out due to patient leaving prior to being seen by health care provider (principal)

== ENCOUNTER 2017-08-02 01:22 | Emergency (ER) | payer MEDICAID ==
[~2017-08-02] VITALS: Ht 170.2 cm; Wt 80.0 kg
[2017-08-02 01:24] VITALS: Ht 170.2 cm; Wt 80.0 kg
--- NOTE | 2017-08-02 05:11 | ERD ---
ER Documentation Chief Complaint Date/Time DATE: 08/02/17 TIME: 05:06 Chief Complaint etoh intoxication HPI This 37-year-old male brought in by paramedics emergency room from being found wandering intoxicated. No signs of trauma. Patient denies trauma or any other medical issue, admits to drinking alcohol twice today,, and is somewhat intoxicated currently. According to paramedics he has been to 3 other emergency room's for alcohol intoxication today. ROS All systems reviewed and are negative except as per history of present illness. Medications Home Meds Reported Medications Lorazepam* (Lorazepam*) 0.5 Mg Tablet, 0.5 MG PO Q8 Y for ANXIETY, TAB 07/17/17 Chlordiazepoxide* (Chlordiazepoxide*) 25 Mg Capsule, 25 MG PO Q4 Y for CONTROL WITHDRAWAL SYMPTOMS, CAP 07/17/17 Allergies Allergies: Coded Allergies: No Known Allergy (Unverified , 12/13/16) PMhx/Soc History of Surgery: No Anesthesia Reaction: No Hx Neurological Disorder: Yes (seizure) Hx Respiratory Disorders: No Hx Cardiac Disorders: No Hx Psychiatric Problems: Yes (bipolar, schizophrenia, ETOH abuse) Hx Miscellaneous Medical Probl: Yes (homeless) Hx Alcohol Use: Yes Hx Substance Use: No Hx Tobacco Use: Yes Physical Exam Vitals Vital Signs Date Time Temp Pulse Resp B/P Pulse Ox O2 Delivery O2 Flow Rate FiO2 08/02/17 01:24 97.9 93 20 134/80 98 Physical Exam Const: [] No distress, calm awake sitting in boiler control technician stretcher chair. Head: Atraumatic Eyes: Normal Conjunctiva ENT: Normal External Ears, Nose and Mouth. Neck: Full range of motion..~ No meningismus. Resp: Clear to auscultation bilaterally Cardio: Regular rate and rhythm, no murmurs Abd: Soft, non tender, non distended. Normal bowel sounds Skin: No petechiae or rashes Back: No midline or flank tenderness Ext: No cyanosis, or edema Neur: Awake and alert and oriented 3, Appears somewhat intoxicated with very mild slurred speech, cranial nerves II through XII intact, no cerebellar deficits. Psych: Normal Mood and Affect Procedures/MDM Alcohol intoxication without any other medical abnormality or signs of trauma. Patient was awakened at 05 30 by myself and repeat neuro assessment was performed. Patient did appear much more sober and may be clinically sober but he said that he is very tired and requests sleep. I feel that this would be safe to allow him to continue to rest before discharge. Counseling for greater than 3 minutes on cessation of alcohol the benefit of both himself and others. Discharging with primary care follow-up.His final disposition of the left of the oncoming physician. Departure Diagnosis: Primary Impression: Alcoholic intoxication Condition: Stable HELENA JAFFE DO Aug 02, 2017 05:11
[2017-08-02 06:01] VITALS: BP 118/73; PULSE 79; RESP 18; TEMP 98.4
== END 2017-08-02 05:50 | disposition home or self-care (01) ==
LOC: E/R 01:22
DX: F10.120 Alcohol abuse with intoxication, uncomplicated (principal)
CPT/HCPCS: 99283

== ENCOUNTER 2017-08-02 09:21 | Emergency (ER) | payer MEDICAID ==
[~2017-08-02] VITALS: Wt 75.0 kg
[2017-08-02 10:38] LABS: ABNORMAL IP MESSAGE 1; BASOPHILS % 0.9 % (0.0-2.0); EOSINOPHILS # 0.1 10^3/ul (0.0-0.5); EOSINOPHILS % 2.7 % (0.0-7.0); HEMOGLOBIN 9.7 g/dl (14.0-18.0); LYMPHOCYTES # 1.9 10^3/ul (0.8-2.9); LYMPHOCYTES % 55.4 % (15.0-51.0); MEAN CORPUSCULAR HEMOGLOBIN 21.5 pg (29.0-33.0); MEAN CORPUSCULAR HGB CONC 29.4 g/dl (32.0-37.0); MEAN CORPUSCULAR VOLUME 73.2 fl (82.0-101.0); MEAN PLATELET VOLUME 8.8 fl (7.4-10.4); MONOCYTE # 0.5 10^3/ul (0.3-0.9); NEUTROPHIL # 0.9 10^3/ul (1.6-7.5); PLATELET COUNT 237 10^3/UL (140-415); POSITIVE DIFF @See below; RED BLOOD COUNT 4.51 10^6/ul (4.70-6.10); RED CELL DISTRIBUTION WIDTH 18.9 % (11.5-14.5); WHITE BLOOD COUNT 3.4 10^3/ul (4.8-10.8)
--- NOTE | 2017-08-02 10:57 | ERD ---
ER Documentation Chief Complaint Date/Time DATE: 08/02/17 TIME: 10:54 Chief Complaint ALCOHOL INTAKE, NO N/V, DIFFUSED ABD PAIN HPI 37-year-old male brought in via EMS after being found laying in public and sleeping in public. The patient admits to drinking a significant amount of alcohol. He denies any falls or head trauma. He is describing mild epigastric abdominal pain and is having difficulty characterizing it. He denies any migratory pain. No hematemesis or melena. ROS All systems reviewed and are negative except as per history of present illness. Medications Home Meds Discontinued Reported Medications Lorazepam* (Lorazepam*) 0.5 Mg Tablet, 0.5 MG PO Q8 Y for ANXIETY, TAB 07/17/17 Chlordiazepoxide* (Chlordiazepoxide*) 25 Mg Capsule, 25 MG PO Q4 Y for CONTROL WITHDRAWAL SYMPTOMS, CAP 07/17/17 Allergies Allergies: Coded Allergies: No Known Allergy (Unverified , 12/13/16) PMhx/Soc History of Surgery: No Anesthesia Reaction: No Hx Neurological Disorder: Yes (seizure) Hx Respiratory Disorders: No Hx Cardiac Disorders: No Hx Psychiatric Problems: Yes (bipolar, schizophrenia, ETOH abuse) Hx Miscellaneous Medical Probl: Yes (homeless) Hx Alcohol Use: Yes (4 ER admissions for ETOH in past 24 hrs) Hx Substance Use: No Hx Tobacco Use: Yes Smoking Status: Current every day smoker FmHx Family History: No diabetes Physical Exam Vitals Vital Signs Date Time Temp Pulse Resp B/P Pulse Ox O2 Delivery O2 Flow Rate FiO2 08/02/17 09:36 98.3 81 17 134/79 98 Physical Exam General: Disheveled, smells strongly of alcohol Head: Normocephalic, atraumatic Eyes: Pupils equally reactive, EOM intact ENT: Moist mucous membranes Neck: Supple, no lymphadenopathy Respiratory: Lungs clear bilaterally, no distress Cardiovascular: RRR, no murmurs, rubs, or gallops Abdominal: Soft, negative Devries sign non-tender, non-distended, no peritoneal signs : Deferred MSK: No edema, no unilateral swelling, 5/5 strength Neurologic: Poorly cooperative and moving all extremities Skin: No rash, No evidence of trauma Psych: Normal mood Result Diagram: 08/02/17 1000 08/02/17 1000 Results 24 hrs Laboratory Tests Test 08/02/17 10:00 White Blood Count 3.410^3/ul Red Blood Count 4.5110^6/ul Hemoglobin 9.7g/dl Hematocrit 33.0% Mean Corpuscular Volume 73.2fl Mean Corpuscular Hemoglobin 21.5pg Mean Corpuscular Hemoglobin Concent 29.4g/dl Red Cell Distribution Width 18.9% Platelet Count 98243^3/UL Mean Platelet Volume 8.8fl Neutrophils % 27.0% Lymphocytes % 55.4% Monocytes % 14.0% Eosinophils % 2.7% Basophils % 0.9% Nucleated Red Blood Cells % 0.0/100WBC Neutrophils # 0.910^3/ul Lymphocytes # 1.910^3/ul Monocytes # 0.510^3/ul Eosinophils # 0.110^3/ul Basophils # 0.010^3/ul Nucleated Red Blood Cells # 0.010^3/ul Sodium Level 148mmol/L Potassium Level 4.0mmol/L Chloride Level 107mmol/L Carbon Dioxide Level 30mmol/L Anion Gap 15 Blood Urea Nitrogen 11mg/dl Creatinine 0.59mg/dl Glucose Level 88mg/dl Calcium Level 8.9mg/dl Total Bilirubin 0.4mg/dl Direct Bilirubin 0.00mg/dl Indirect Bilirubin 0.4mg/dl Aspartate Amino Transf (AST/SGOT) 98IU/L Alanine Aminotransferase (ALT/SGPT) 62IU/L Alkaline Phosphatase 64IU/L Total Protein 7.5g/dl Albumin 4.5g/dl Globulin 3.00g/dl Albumin/Globulin Ratio 1.50 Lipase 223U/L Procedures/MDM LAB INTERPRETATION: No evidence of about a biliary obstruction or pancreatitis MEDICAL DECISION MAKING: The patient's presentation is consistent with acute alcohol intoxication. Patient's abdominal pain is likely secondary to alcoholic gastritis. Consider malingering. He has a benign abdominal exam without signs of pancreatitis, hepatobiliary obstruction, acute intra-abdominal process or obstruction. No evidence of trauma. I have a much lower clinical concern for clinically significant traumatic brain injury, meningitis, significant electrolyte disturbance The patient's workup will include appropriate laboratory testing and diagnostic imaging, as well as observation for sobriety. The patient's presentation is most consistent with acute alcohol intoxication leading to acute encephalopathy. The patient is protecting their airway. The patient has no signs or symptoms concerning for impending respiratory failure and does not require intubation at this time. The patient will require observation in the emergency room to allow for metabolization. Once the patient is able to ambulate on their own accord, navigate the community the patient can be safely discharged from the emergency room. ER COURSE: The patient continues to be observed in the emergency room. He requires more time for sobriety. Observation Note: Indication: Alcohol intoxication Duration: Greater than 4 hours Family history: As described above The patient was observed with serial exams over the above timeframe. The patient continued to be well-appearing, and observation continued without complication. I kept the patient and/or family informed of laboratory and diagnostic imaging results throughout the emergency room course. DISPOSITION PLAN: Once the patient can ambulate to navigate the community he will be discharged. Patient endorsed the Dr. Wong to follow-up and disposition plan. His discharge paperwork was placed in his chart. Departure Diagnosis: Primary Impression: Alcoholic intoxication Complication of substance-induced condition: uncomplicated Qualified Code: F10.920 - Alcoholic intoxication without complication Additional Impression: Alcoholic gastritis Chronicity: acute Gastritis bleeding: without bleeding Qualified Code: K29.20 - Acute alcoholic gastritis without hemorrhage Condition: Stable JONES GUTIERREZ MD Aug 02, 2017 10:57
[2017-08-02 11:08] LABS: ALBUMIN 4.5 g/dl (3.3-4.9); ALBUMIN/GLOBULIN RATIO 1.5; BILIRUBIN,INDIRECT 0.4 mg/dl (0-1.1); BILIRUBIN,TOTAL 0.4 mg/dl (0.2-1.3); CALCIUM 8.9 mg/dl (8.4-10.2); CREATININE 0.59 mg/dl (0.61-1.24); TOTAL PROTEIN 7.5 g/dl (6.1-8.1)
== END 2017-08-02 16:08 | disposition home or self-care (01) ==
LOC: E/R 09:21
DX: F10.120 Alcohol abuse with intoxication, uncomplicated (principal); K29.20 Alcoholic gastritis without bleeding; F17.210 Nicotine dependence, cigarettes, uncomplicated
CPT/HCPCS: 36415; 80053; 83690; 85025; Z7502; 99283